=== PATIENT | female | born 1950 | race Caucasian/White ===

== ENCOUNTER 2017-05-06 10:02 | Day surgery (SDC) | payer OTHER ==
[~2017-05-06] VITALS: Ht 162.6 cm; Wt 98.4 kg
[~2017-05-06 10:02] MED LIST: ALPHAGAN P100 DROP/1 BOTH EYES; ALPHAGAN P100 DROP/5; ALPHAGAN P100 DROP/5 BOTH EYES; AMPHETAMINE SAL10 MG PO; CENTRUM SILVER1 EAC4 PO; CLARITIN10 MG PO; CLONAZEPAM0.5 MG PO; CLONAZEPAM1 MG PO; COSOPT EYE DROPS5 ML; COSOPT EYE DROPS5 ML LEFT EYE; DITROPAN5 MG PO; DONEPEZIL HCL10 MG PO; DORZOLAMIDE-TIM10 ML BOTH EYES; EFFEXOR XR150 MG PO; EFFEXOR XR75 MG PO; ENDOCET 10-3251 EACH PO; FLUDROCORTISON0.1 M1 PO; GABAPENTIN300 MG PO; HYDROCODON-ACE1 EAC7 PO; JANUVIA100 MG PO; KLONOPIN0.5 M1 PO; LATANOPROST2.5 ML BOTH EYES; LEVOTHYROXINE50 MCG PO; MACROBID100 MG PO; MULTIPLE VITAM1 EACH PO; NEURONTIN400 MG PO; PROTONIX40 MG PO; REFRESH EYE DR1 EACH BOTH EYES; REFRESH P.M. O3.5 GM BOTH EYES; REFRESH15 ML BOTH EYES; SIMVASTATIN40 MG PO; SINGULAIR10 MG PO; SYMBICORT60 INHALAT IH; SYNTHROID88 MCG PO; THORAZINE10 MG PO; ULTRAM50 MG PO; VENLAFAXINE HC150 M1 PO; VENLAFAXINE HCL75 MG PO; VENTOLIN HFA18 GM IH; VESICARE5 MG PO; VITAMIN D31000 UNIT PO; XALATAN2.5 ML BOTH EYES; ZOCOR40 MG PO; ZOFRAN ODT8 MG PO; ZYPREXA7.5 MG PO
[2017-05-06 11:25] LABS: POINT-OF-CARE METER ID UU14174212; POINT-OF-CARE USER ID AHSRSCSLC11
[2017-05-09] MEDS ORDERED: KLONOPIN0.5 M1 PO (12:39)
== END 2017-05-06 12:34 | disposition home or self-care (01) ==
LOC: PAIN 10:02 → SDC 11:00 → PAIN 11:00
PROVIDERS: Anesthesiology Pain Medicine
DX: M47.816 Spondylosis without myelopathy or radiculopathy, lumbar region (principal); M51.36 Other intervertebral disc degeneration, lumbar region; F41.1 Generalized anxiety disorder; J45.909 Unspecified asthma, uncomplicated; E11.9 Type 2 diabetes mellitus without complications; E78.5 Hyperlipidemia, unspecified; E03.9 Hypothyroidism, unspecified; E66.9 Obesity, unspecified; Z68.37 Body mass index [BMI] 37.0-37.9, adult; G47.33 Obstructive sleep apnea (adult) (pediatric); Z87.891 Personal history of nicotine dependence; Z88.2 Allergy status to sulfonamides; Z88.8 Allergy status to other drugs, medicaments and biological substances
CPT/HCPCS: 82948; 94640; J1030; J2250; J3010; S0020

== ENCOUNTER 2017-05-13 10:14 | Day surgery (SDC) | payer OTHER ==
[~2017-05-13] VITALS: Ht 162.6 cm; Wt 98.4 kg
[2017-05-13 10:54] LABS: POINT-OF-CARE METER ID UU14174212
== END 2017-05-13 12:00 | disposition home or self-care (01) ==
LOC: PAIN 10:14 → SDC 11:00 → PAIN 11:00
PROVIDERS: Anesthesiology Pain Medicine
DX: M47.26 Other spondylosis with radiculopathy, lumbar region (principal); M51.16 Intervertebral disc disorders with radiculopathy, lumbar region; M48.061 Spinal stenosis, lumbar region without neurogenic claudication; Z87.891 Personal history of nicotine dependence; J45.909 Unspecified asthma, uncomplicated; E11.9 Type 2 diabetes mellitus without complications; K22.4 Dyskinesia of esophagus; E78.5 Hyperlipidemia, unspecified; E03.9 Hypothyroidism, unspecified; E66.9 Obesity, unspecified; F41.1 Generalized anxiety disorder; H40.9 Unspecified glaucoma; G47.33 Obstructive sleep apnea (adult) (pediatric); Z79.84 Long term (current) use of oral hypoglycemic drugs
CPT/HCPCS: 82948; J1030; J2250; J3010; S0020

== ENCOUNTER 2017-06-18 08:54 | Day surgery (SDC) | payer OTHER ==
[~2017-06-18] VITALS: Ht 162.6 cm; Wt 98.4 kg
[2017-06-18 09:40] LABS: POINT-OF-CARE METER ID UU14174212
== END 2017-06-18 11:00 | disposition home or self-care (01) ==
LOC: PAIN 08:54 → SDC 09:30 → PAIN 11:00
PROVIDERS: Anesthesiology Pain Medicine
PROC: 3E0T3TZ Introduction of Destructive Agent into Peripheral Nerves and Plexi, Percutaneous Approach (ICD-10-PCS; principal; 2017-06-18)
PROC: BR161ZZ Fluoroscopy of Lumbar Facet Joint(s) using Low Osmolar Contrast (ICD-10-PCS; principal; 2017-06-18)
DX: M47.816 Spondylosis without myelopathy or radiculopathy, lumbar region (principal); M54.5 Low back pain; G89.29 Other chronic pain; M48.061 Spinal stenosis, lumbar region without neurogenic claudication; M51.36 Other intervertebral disc degeneration, lumbar region; E78.5 Hyperlipidemia, unspecified; E11.9 Type 2 diabetes mellitus without complications; E03.9 Hypothyroidism, unspecified; J44.9 Chronic obstructive pulmonary disease, unspecified; G47.33 Obstructive sleep apnea (adult) (pediatric); J45.909 Unspecified asthma, uncomplicated; F41.9 Anxiety disorder, unspecified; Z88.2 Allergy status to sulfonamides; Z87.891 Personal history of nicotine dependence
CPT/HCPCS: 82948; J1030; J2250; J3010; S0020

== ENCOUNTER 2017-08-29 10:10 | Day surgery (SDC) | payer OTHER ==
[~2017-08-29] VITALS: Ht 165.1 cm; Wt 94.8 kg
== END 2017-08-29 12:32 | disposition home or self-care (01) ==
LOC: PAIN 10:10 → CATH 10:45 → SDC 10:45 → PAIN 11:45
PROVIDERS: Anesthesiology Pain Medicine
DX: M47.26 Other spondylosis with radiculopathy, lumbar region (principal); M51.16 Intervertebral disc disorders with radiculopathy, lumbar region; M48.061 Spinal stenosis, lumbar region without neurogenic claudication; J44.9 Chronic obstructive pulmonary disease, unspecified; E11.9 Type 2 diabetes mellitus without complications; E03.9 Hypothyroidism, unspecified; K21.9 Gastro-esophageal reflux disease without esophagitis; Z88.2 Allergy status to sulfonamides; F41.1 Generalized anxiety disorder; E78.5 Hyperlipidemia, unspecified; G47.33 Obstructive sleep apnea (adult) (pediatric); Z87.891 Personal history of nicotine dependence; Z79.891 Long term (current) use of opiate analgesic
CPT/HCPCS: 82948; J1100; J2250